=== PATIENT | female | born 1995 | race Caucasian/White ===

== ENCOUNTER → 2023-05-05 | Outpatient (CLI) | payer OTHER ==
--- NOTE | 2023-05-05 19:23 | Diagnostic Imaging Report ---
INDICATION: Right wrist stiffness, contusion, sprain, pain COMPARISON: None available. TECHNIQUE: 3 radiographs of the right wrist dated . FINDINGS: No acute fracture or dislocation. No destructive osseous process. Carpal alignment is well-maintained. Scapholunate interval is within normal limits. No suspicious radiopaque foreign body. IMPRESSION: No acute osseous abnormality. Dictated by: Dictated on workstation # [id number]
== END ==
LOC: RAD FS 17:21
PROVIDERS: ATTEND Nurse Practitioner Family
DX: S63.501A Unspecified sprain of right wrist, initial encounter (principal)
CPT/HCPCS: 73110